=== PATIENT | female | born 1980 | race Caucasian/White ===

== ENCOUNTER → 2023-01-24 12:48 | Outpatient (BNVA) | payer BC, SELFPAY | PROVIDERS: PCP Nurse Practitioner Family; Visit Provider Student in an Organized Health Care Education/Training Program | DX: Z13.89 Encounter for screening for other disorder (principal) ==

== ENCOUNTER 2023-06-26 09:35 | Outpatient (AMB) | payer BC, MEDICAID, SELFPAY ==
[2023-06-26 09:39] VITALS: BP 98/56; PULSE 67; TEMP 36.3; O2SAT 99; BMI 21.2
--- NOTE | 2023-06-26 09:39 | MHC.OFFVIS ---
Intake Vital Signs 06/26/23 09:39 Height 5 ft 2 in Weight 115 lb 11.883 oz BMI 21.2 BP 98/56 L Blood Pressure Location Rt brachial Position Sitting Pulse 67 Pulse Source Pulse Oximeter Temp 97.4 F Temp Source Skin Pulse Oximetry (%) 99 Intake Visit Reasons: FMS Independent Insurance Adjuster Required: No Accompanied by: Self / Same As Patient Allergies No Known Allergies [No Known Allergies*] Allergy (Unverified 06/26/23 09:45) Medication List - Last Reconciled 06/26/23 by Radha Lo MD meclizine 12.5 mg PO DAILY PRN HPI HPI Comments History of Present Illness Details This is a 42-year-old female with fibromyalgia who presents for follow-up. Since last patient patient has been exercising more. She is walking more and goes to the gym more. She is trying to make exercising a prior 3. She states that exercising does not necessarily help with the pain but it gives her a little bit more energy. She still has good days and bad days. Days where she has brain fog and other days where she has more energy. She has been attending groups for pain, some of the participants have fibromyalgia. And non medical treatment strategies for fibromyalgia are discussed such as diet. Patient is not interested in any medications for fibromyalgia at this point. Initial history: This is a 42-year-old female who presents for evaluation of diffuse pain. Patient stated that she has had diffuse pain for years but has been progressively worse over the last couple of years. Patient has diffuse pain everywhere. Especially her upper back, lower back, thighs, arms, hands. She bruises easily with little trauma. She has constant migraines. She was recently evaluated by neurologist and she is being referred to a migraine specialist. She has brain fog and sometimes difficulty finding words. She states that her symptoms got worse since she got COVID in October of 2021. She denies any history of DVT/PE. No known family history of autoimmune rheumatic disease. She tried some supplements for fibromyalgia for a few months without relief. She recently began walking 3 times a week. Patient has 5 kids and 2 [place] dogs. She has difficulty falling and staying asleep for the last 10 years as usually 1 of her kids would wake her up. She has history of anxiety. She does not see a therapist or a psychiatrist currently. [facility], [facility] Medical History Joint pain Major depression, melancholic type Thoracic back pain Vestibular migraine Surgical History History of surgery Family History Father Alcoholism Depressive disorder Diabetes Mother Depressive disorder Paternal Grandfather Diabetes Maternal Grandmother Colon cancer Social History Household Members: Spouse and Children Alcohol intake: current Alcohol intake frequency: does not drink Patient Tobacco Use Status: Former Tobacco user Quit Date: 2009 Current occupation: Stay at home mom Review of Systems Const Reports fatigue and Reports weakness Musc Reports arthralgias and Reports muscle weakness Neuro Reports weakness Endo Reports fatigue Physical Exam Vital Signs: Last Vital Signs Temp 97.4 F 06/26/23 09:39 Pulse 67 06/26/23 09:39 BP 98/56 L 06/26/23 09:39 Pulse Ox 99 06/26/23 09:39 BMI result Body Mass Index 21.2 Const General: cooperative, healthy appearing and comfortable Nutritional Appearance: average body habitus Orientation/consciousness: patient oriented x3 Limitations: no limitations HEENT Head: Yes normocephalic and Yes atraumatic Resp Effort & Inspection: normal respiratory effort and able to speak in complete sentences Neuro General: patient oriented x3 Results Reviewed Results Reviewed: Labs 08/2022? VILMA/CCP/RF/ESR/CRP/CPK all negative or normal? CMP unremarkable except for AST elevated at 69 CBC unremarkable Ferritin/TSH/magnesium/vitamin B12 all normal Assessment & Plan Assessment & Plan (1) Fibromyalgia, primary: Code(s): M79.7 - Fibromyalgia Plan: This is a 42-year-old female with fibromyalgia presents for follow-up. Over the last few months patient has been exercising more, attending group therapy for pain. She feels a little better overall. More energetic. Continues to have good and bad days. She is not interested in any pharmacotherapy for fibromyalgia. Follow-up as needed Plan I spent 15 minutes reviewing patient's chart, evaluating patient, ordering diagnostic workup, counseling patient and documenting in the chart Coding Level of Care Code Est Pt Level 3 (66041) Diagnoses Fibromyalgia, primary M79.7
== END 2023-06-26 10:19 | disposition home or self-care (01) ==
PROVIDERS: PCP Nurse Practitioner Family; Visit Provider Student in an Organized Health Care Education/Training Program
DX: M79.7 Fibromyalgia (principal)
CPT/HCPCS: 99213

== ENCOUNTER → 2023-06-26 09:35 | Outpatient (BNVA) | payer BC, MEDICAID, SELFPAY | PROVIDERS: PCP Nurse Practitioner Family; Visit Provider Student in an Organized Health Care Education/Training Program ==